=== PATIENT | male | born 1945 | race Caucasian/White ===

== ENCOUNTER 2023-05-11 09:50 | Emergency (ER) | payer OTHER, MEDICARE ==
[~2023-05-11] VITALS: Ht 170.2 cm; Wt 80.0 kg
[2023-05-11] MEDS ORDERED: LidoCAINE 2% Topical Jelly 11mL syringe MM ONE (10:35)
[2023-05-11] MEDS ORDERED: LIDOcaine 2% 10ml TOPICAL JELLY (Urojet) MM ONE (10:35)
[2023-05-11] MEDS ORDERED: tamsulosin 0.4mg capsule PO STA (10:35)
[2023-05-11 10:58] LABS: BASOPHILS % (AUTO) 0.2 % (0-1); EOSINOPHILS % (AUTO) 0 % (0-6); HEMATOCRIT 46.7 % (42.0-52.0); HEMOGLOBIN 15.6 g/dl (14.0-17.9); LYMPHOCYTES # (AUTO) 0.3 X10'3 (1.1-4.8); LYMPHOCYTES % (AUTO) 2.8 % (21-51); MEAN CORPUSCULAR HEMOGLOBIN 30.8 PG (27.0-31.0); MEAN CORPUSCULAR HGB CONC 33.5 g/dL (33.0-36.5); MEAN PLATELET VOLUME 7.5 FL (7.4-10.4); MONOCYTES # (AUTO) 0.5 X10'3 (0-0.9); MONOCYTES % (AUTO) 3.6 % (2-12); NEUTROPHILS # (AUTO) 11.5 X10'3 (1.8-7.7); NEUTROPHILS % (AUTO) 93.4 % (42-75); PLATELET COUNT 174 X10'3 (140-440); RED BLOOD COUNT 5.07 X10'6 (4.70-6.10); WHITE BLOOD COUNT 12.4 X10'3 (4.5-11.0)
[2023-05-11 11:16] LABS: ALANINE AMINOTRANSFERASE 82 U/L (12-78); ALBUMIN 4.2 G/DL (3.4-5.0); ALBUMIN/GLOBULIN RATIO 1.3 (1.1-1.5); ALKALINE PHOSPHATASE 117 IU/L (46-116); ANION GAP 16 (8-16); ASPARTATE AMINO TRANSFERASE 45 U/L (10-37); BILIRUBIN,TOTAL 0.6 MG/DL (0.1-1.0); BLOOD UREA NITROGEN 19 MG/DL (7-18); BUN/CREATININE RATIO 19.2 (10.0-20.0); CALCIUM 9.2 MG/DL (8.5-10.1); CHLORIDE 107 MMOL/L (99-107); CREATININE 0.99 MG/DL (0.60-1.10); GLUCOSE 123 MG/DL (70-104); SODIUM 144 MMOL/L (135-145); TOTAL CARBON DIOXIDE 21.4 MMOL/L (24-32); TOTAL PROTEIN 7.4 G/DL (6.4-8.2); eGFR 74 ML/MIN
[2023-05-11 11:26] LABS: CLARITY,URINE CLEAR (Clear); COLOR,URINE STRAW (Yellow); GLUCOSE, URINE NEGATIVE (Neg); KETONES,URINE NEGATIVE (Neg); LEUKOCYTE ESTERASE ,URINE NEGATIVE (Neg); NITRITES, URINE NEGATIVE (Neg); OCCULT BLOOD,URINE MODERATE (Neg); PROTEIN,URINE NEGATIVE (Neg); UROBILINOGEN,URINE 0.2 E.U/dL (0.2-1.0)
[2023-05-11 11:28] LABS: UA COLLECTION TYPE FOLEY CATH
[2023-05-11 11:33] LABS: MUCUS STRANDS FEW /LPF (Neg); SQUAMOUS EPITHELIAL CELL,UR FEW /LPF (FEW)
[2023-05-11 11:35] LABS: BACTERIA,URINE FEW /HPF (Neg); WBC,URINE 0-4 /HPF (0-4)
[2023-05-11 12:56] VITALS: BP 155/88
== END 2023-05-11 13:01 | disposition home or self-care (01) ==
LOC: ER 09:52
DX: R33.9 Retention of urine, unspecified (principal); N40.0 Benign prostatic hyperplasia without lower urinary tract symptoms; N18.9 Chronic kidney disease, unspecified
CPT/HCPCS: 36415; 51702; 80053; 81001; 85025; 99284; A4358